=== PATIENT | female | born 1970 | race Caucasian/White ===

== ENCOUNTER → 2016-06-20 | Outpatient (CLI) | payer OTHER ==
[~2016-06-20] MED LIST: GADOBUTROL 10 ML VIAL IVP ONE
== END ==
LOC: FIMAGING 11:32
PROVIDERS: ATTEND Neurological Surgery
DX: I67.1 Cerebral aneurysm, nonruptured (principal); I65.21 Occlusion and stenosis of right carotid artery; G93.89 Other specified disorders of brain
CPT/HCPCS: A9585

== ENCOUNTER → 2016-09-23 | Outpatient (CLI) | payer OTHER | LOC: FIMAGING 12:15 | PROVIDERS: ATTEND Neurological Surgery | DX: I67.1 Cerebral aneurysm, nonruptured (principal) | CPT/HCPCS: A9585 ==

== ENCOUNTER → 2016-12-31 | Outpatient (CLI) | payer OTHER | LOC: FIMAGING 14:42 | PROVIDERS: ATTEND Physician Assistant | DX: I72.0 Aneurysm of carotid artery (principal) | CPT/HCPCS: A9585 ==

== ENCOUNTER 2017-06-13 16:50 | Observation (INO) | payer BC ==
--- NOTE | 2017-06-13 17:12 | EDPHY ---
H & P Stated Complaint: henson since 929/hx spontaneous subarachnoid in past - Personal History LMP (Females 10-55): Post Menopausal Current Tetanus/Diphtheria Vaccine: Yes - Medical/Surgical History Hx Asthma: No Hx Chronic Respiratory Disease: No Hx Diabetes: No Hx Cardiac Disease: No Hx Renal Disease: No Hx Cirrhosis: No Hx Alcoholism: No Hx HIV/AIDS: No Hx Splenectomy or Spleen Trauma: No Other PMH: PMHx: hypothyroidism, fertility issues. 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 this morning while she was working at home. She describes the pain as waxing and waning, intermittently feel on as as sharp stabbing pain with associated nausea. No vomiting. Pain and nausea continue now. No gait instability. No slurred speech. No visual disturbance. No chest pain. No recent head injury. PRIMARY CARE PROVIDER: REVIEW OF SYSTEMS: A ten point review of systems was performed and is negative with the exception of the items mentioned in the HPI PAST MEDICAL & SURGICAL HISTORY: Subarachnoid hemorrhage December 2015 with placement of ventriculostomy catheter and "embolization. SOCIAL HISTORY:Nonsmoker PHYSICAL EXAM (Prior to examination, patient consented to physical exam, hands were washed and my usual and customary physical exam procedures followed) 1) GENERAL: Well-developed, well-nourished, alert and oriented. Appears uncomfortable. Answering questions appropriately 2) HEAD: Normocephalic, atraumatic 3) HEENT: Pupils equal, round, reactive to light bilaterally. Sclera anicteric. Nasopharynx, oropharynx, clear, no lesions. Ears bilaterally with normal tympanic membranes. 4) NECK: Full range of motion, no meningeal signs. 5) LUNGS: Clear auscultation bilaterally, no wheezes, no rhonchi, no retractions. 6) HEART: Regular rate and rhythm, no murmur, no heave, no gallop. 7) ABDOMEN: No guarding, no rebound, no focal tenderness, negative McBurney's, negative Blair's, negative Rovsing's, negative peritoneal sign, 8) MUSCULOSKELETAL: Moving all extremities, no focal areas of tenderness, no obvious trauma. No peripheral edema or discoloration. 9) BACK: No CVA tenderness, no midline vertebral tenderness, no fluctuance, no step-off, no obvious trauma, no visual or palpable abnormality. 10) SKIN: No rash, no petechiae. 11) Psychiatric: Patient is oriented X 3, there is no agitation. 12) NEURO: Awake, alert, and oriented to person, place and time. Answers questions appropriately. There were no obvious focal neurologic abnormalities. No cerebellar dysfunction. Cranial nerves 2 through to 12 intact. Normal steady gait. Upper and lower extremities bilaterally with strength 5 / 5, reflexes 2+. DIFFERENTIAL DIAGNOSIS: In no particular order, including but not limited to subarachnoid hemorrhage, migraine headache, tension headache and infectious causes such as meningitis, pharyngitis and sinusitis.. (Erica Goldman Ruthy) Constitutional: Initial Vital Signs Temperature (C) 36.4 C 06/13/17 16:54 Heart Rate 62 06/13/17 16:54 Respiratory Rate 18 06/13/17 16:54 Blood Pressure 176/118 H 06/13/17 16:54 O2 Sat (%) 97 06/13/17 16:54 O2 Delivery Mode Room Air Allergies/Adverse Reactions: bacitracin [From Neosporin ([id number])] Allergy (Verified 06/13/17 16:52) bacitracin zinc [From Neosporin ([id number])] Allergy (Verified 06/13/17 16: 52) neomycin sulfate [From Neosporin ([id number])] Allergy (Verified 06/13/17 16: 52) polymyxin B [From Neosporin (naq-[id number])] Allergy (Verified 06/13/17 16:52) Home Medications: Medication Instructions Recorded Aspirin EC [Aspirin EC 81 mg (*)] 81 mg PO DAILY 06/13/17 Cholecalciferol Vit D3 [Vitamin D3 5,000 units PO DAILY 06/13/17 (*)] Gabapentin [Neurontin 100 MG (*)] 200 mg PO HS 06/13/17 Levothyroxine [Synthroid 75 mcg 75 mcg PO DAILY06 06/13/17 (*)] Lisinopril [Zestril 10 mg (*)] 2.5 mg PO BID 06/13/17 oxyCODONE IR [Oxycodone Ir (*)] 5 mg PO Q6H PRN 06/13/17 Medical Decision Making - Diagnostics Imaging Results: Imaging Impressions Head CT 06/13/17 17:07 Impression: Nothing acute identified. Specifically no evidence for recurrent subarachnoid hemorrhage. Results called to PA. Millieat 5:53 pm General information for patients regarding this examination can be found at [email or web address]. If you have questions or comments about this report, please contact me at (hospital) or [phone] (cell). ED Course/Re-evaluation: 5:11 p.m.: I reviewed the patient's old medical records. She has a medical history significant for subarachnoid hemorrhage. Discussed case with secondary supervising physician Dr. Pascual Julian in the ER. Will proceed directly to CT imaging. 5:53 p.m.: CT head negative per Radiology interpretation. 6:09 p.m.: Consultation with Dr. Regan Neurosurgery, inquired specifically about more advanced imaging such as CTA, CTV. He recommended that if the LP is negative, to hold on further diagnostic studies. We discussed patient's sodium [address] Regan feels may be the etiology of her headache. 6:37 p.m.: Consultation with hospitalist Dr. Roc Castillo who will admit patient. (Erica Goldman) Other Provider: PHYSICIAN DOCUMENTATION: The patient was evaluated and managed by the Physician Flat Sheet Maker and myself. I have reviewed the chart and agree with the findings and plan of care as documented. In addition, I examined the patient myself at 1800. History confirmed as severe headache starting at 9:00 a.m., history of coiled aneurysmal subarachnoid. Physical findings as follows: Alert, normal speech, normal level of alertness. Procedure: Lumbar puncture. Indication: headache and history of subarachnoid Risks benefits and alternatives to the procedure were discussed including but not limited to infection, headache, bleeding, and neurologic damage. Consent was obtained. The patient was prepped and draped in the usual sterile fashion. A time out was completed. The entry site was anesthetized with 1% lidocaine and a lumbar puncture was performed with a 23-gauge spinal needle. Approximately 4 mL of clear fluid was obtained. Opening pressure was not obtained. There were no complications. The procedure was performed by myself. 1959: 0 WBC and 0 RBC in tube 1, subarachnoid hemorrhage would be very unlikely given this result. I am the secondary supervising physician. (Pascual Julian) - Data Points Laboratory Results: Laboratory Results 06/13/17 17:10 06/13/17 17:10 06/13/17 06/13/17 06/13/17 18:20 18:20 17:10 WBC RBC Hgb Hct MCV MCH MCHC RDW Plt Count MPV Neut % (Auto) Lymph % (Auto) [place] % (Auto) Eos % (Auto) Baso % (Auto) Nucleat RBC Rel Count Absolute Neuts (auto) Absolute Lymphs (auto) Absolute Monos (auto) Absolute Eos (auto) Absolute Basos (auto) Absolute Nucleated RBC Immature Gran % Immature Gran # PT INR APTT Sodium Potassium Chloride Carbon Dioxide Anion Gap BUN Creatinine Estimated GFR Glucose Calcium Beta HCG, Qual NEGATIVE CSF Tube Number 4 1 CSF Appearance CLEAR CLEAR (CLEAR) (CLEAR) CSF Color COLORLESS COLORLESS (COLORLESS) (COLORLESS) CSF Supernatant COLORLESS COLORLESS (COLORLESS) (COLORLESS) CSF WBC 1 /mm3 /mm3 0 /mm3 /mm3 (0-5) (0-5) CSF RBC 0 /mm3 /mm3 0 /mm3 /mm3 (0-0) (0-0) CSF Glucose 44 mg/dL L mg/dL (50-75) CSF Total Protein 49 mg/dL mg/dL (12-60) 06/13/17 06/13/17 06/13/17 17:10 17:10 17:10 WBC 3.67 10^3/uL L 10^3/uL (3.80-9.50) RBC 4.56 10^6/uL 10^6/uL (4.18-5.33) Hgb 14.4 g/dL g/dL (12.6-16.3) Hct 39.3 % % (38.0-47.0) MCV 86.2 fL fL (81.5-99.8) MCH 31.6 pg pg (27.9-34.1) MCHC 36.6 g/dL g/dL (32.4-36.7) RDW 12.1 % % (11.5-15.2) Plt Count 264 10^3/uL 10^3/uL (150-400) MPV 9.0 fL fL (8.7-11.7) Neut % (Auto) 39.3 % % (39.3-74.2) Lymph % (Auto) 51.2 % H % (15.0-45.0) [place] % (Auto) 5.4 % % (4.5-13.0) Eos % (Auto) 3.0 % % (0.6-7.6) Baso % (Auto) 0.8 % % (0.3-1.7) Nucleat RBC Rel Count 0.0 % % (0.0-0.2) Absolute Neuts (auto) 1.44 10^3/uL L 10^3/uL (1.70-6.50) Absolute Lymphs (auto) 1.88 10^3/uL 10^3/uL (1.00-3.00) Absolute Monos (auto) 0.20 10^3/uL L 10^3/uL (0.30-0.80) Absolute Eos (auto) 0.11 10^3/uL 10^3/uL (0.03-0.40) Absolute Basos (auto) 0.03 10^3/uL 10^3/uL (0.02-0.10) Absolute Nucleated RBC 0.00 10^3/uL 10^3/uL (0-0.01) Immature Gran % 0.3 % % (0.0-1.1) Immature Gran # 0.01 10^3/uL 10^3/uL (0.00-0.10) PT 13.7 SEC SEC (12.0-15.0) INR 1.03 (0.83-1.16) APTT 32.6 SEC SEC (23.0-38.0) Sodium 124 mEq/L L mEq/L (135-145) Potassium 4.0 mEq/L mEq/L (3.5-5.2) Chloride 90 mEq/L L mEq/L (97-110) Carbon Dioxide 22 mEq/l mEq/l (22-31) Anion Gap 12 mEq/L mEq/L (8-16) BUN 6 mg/dL L mg/dL (7-23) Creatinine 0.6 mg/dL mg/dL (0.6-1.0) Estimated GFR > 60 Glucose 77 mg/dL mg/dL (70-100) Calcium 8.9 mg/dL mg/dL (8.5-10.4) Beta HCG, Qual CSF Tube Number CSF Appearance CSF Color CSF Supernatant CSF WBC CSF RBC CSF Glucose CSF Total Protein Microbiology Results: MICROBIOLOGY 06/13/17 18:20 Cerebral Spinal Fluid Gram Stain - Final Medications Given: Gabapentin (Neurontin) 200 mg PO HS LARY Stop: 12/10/17 20:59 Last Admin: 06/13/17 20:17 Dose: 200 mg Lisinopril (Zestril) 2.5 mg PO BID LARY Stop: 12/10/17 20:59 Last Admin: 06/13/17 20:17 Dose: 2.5 mg Discontinued Medications Sodium Chloride (Ns) 1,000 mls @ 0 mls/hr IV ONCE ONE PRN Reason: Wide Open Stop: 06/13/17 17:26 Last Admin: 06/13/17 18:59 Dose: Not Given Sodium Chloride (Ns) 500 mls @ 1,500 mls/hr IV ONCE ONE Stop: 06/13/17 19:13 Last Admin: 06/13/17 18:59 Dose: 500 mls Metoclopramide HCl (Reglan Injection) 10 mg IVP EDNOW ONE Stop: 06/13/17 17:26 Last Admin: 06/13/17 17:36 Dose: 10 mg Departure - Departure Disposition: [facility] Acute Clinical Impression: Hyponatremia, History of subarachnoid hemorrhage Headache Qualifiers: Headache type: other headache syndrome Qualified Code(s): G44.89 - Other headache syndrome Condition: Good
[2017-06-13 17:25] LABS: PLATELET COUNT 264 10^3/uL (150-400)
[2017-06-13] MEDS ORDERED: NS 1,000 ML IV ONE (17:25)
[2017-06-13] MEDS ORDERED: METOCLOPRAMIDE 10 MG/2 ML VIAL IVP ONE (17:25)
[2017-06-13 17:43] LABS: INR 1.03 (0.83-1.16); PROTIME(PATIENT) 13.7 SEC (12.0-15.0)
[2017-06-13] MEDS ORDERED: PROMETHAZINE HCL 25 MG/ML INJ IVP PRN (18:54)
[2017-06-13] MEDS ORDERED: METOCLOPRAMIDE 10 MG/2 ML VIAL IVP PRN (18:54)
[2017-06-13] MEDS ORDERED: oxyCODONE IR 5 MG TAB PO PRN ×2 (18:54→18:56)
[2017-06-13] MEDS ORDERED: ACETAMINOPHEN 325 MG TAB PO PRN (18:54)
[2017-06-13] MEDS ORDERED: NS 500 ML IV ONE (18:54)
--- NOTE | 2017-06-13 19:32 | GHP ---
[f rep st] HISTORY AND PHYSICAL DATE OF ADMISSION: 06/13/2017 CHIEF COMPLAINT: Headache. HISTORY OF PRESENT ILLNESS: This is a 47-year-old female with a history of an aneurysmal subarachnoi d bleed in 2016, status post ventriculostomy placement as well as coiling and stent procedure by Dr. Mauro. Since then she has been doing well, and she follows with TBI specialist Dr. Blackburn. She h as somewhat of a chronic headache disorder, which is normally dull and throbbing. Two days ago, it w as worse than normal. She stayed home from work. She basically slept all day yesterday. Today, she drank a lot of tea but has not really eaten anything else. She says that she has been urinating nor roz. She presented to the ED today after having a much more severe stabbing pain in the left side of her head. It was not associated with any neurologic symptoms, including worsening confusion, weak ness, or numbness. In the emergency department, she underwent a lumbar puncture to exclude xanthochr omia. PAST MEDICAL/SURGICAL HISTORY: 1. Subarachnoid hemorrhage due to an aneurysmal coil in 2016. 2. Hypertension. MEDICATIONS: Please see medication reconciliation. ALLERGIES: Neosporin. FAMILY HISTORY: Grandmother had an aneurysm. SOCIAL HISTORY: She drinks alcohol socially. She is accompanied by her . REVIEW OF SYSTEMS: A 10-point review of systems is conducted and is negative except per HPI. PHYSICAL EXAMINATION: VITAL SIGNS: Blood pressure 155/110, pulse 46, respiration rate 16, saturatin g 100% on room air, temperature 36.4. IN GENERAL: The patient is a pleasant female who is resting c omfortably. No acute distress. HEENT: Shows her to be normocephalic, atraumatic. CARDIOVASCULAR: Regular rate and rhythm. No murmurs, rubs, or gallops. PULMONARY: Lungs clear to auscultation dee aterally. ABDOMEN: Soft, nontender, nondistended. SKIN: No rash. : No [place]. NEUROLOGIC: Sh ows her to be alert and oriented x3. She is somewhat slow to answer questions. Cranial nerves 2-12 are intact. Motor and sensation are intact in her upper and lower extremities. LABS: White count is 3.6. INR is 1.0. Sodium is 124. Chloride is 90. CSF is pending. DATA: 1. I discussed this with Manuel Hampton as well as Pascual Sexton. We will admit to Med/Surg for hyponatre daylin. 2. Head CT shows nothing acute. IMPRESSION AND PLAN: A 47-year-old female with headache and hyponatremia. 1. Hyponatremia: This is probably a combination of hypovolemia with mild polydipsia. I will place her on a fluid restriction. Give her 500 cc of normal saline and then recheck a sodium thereafter. Check urine electrolytes. Based on her response to a half liter, this will determine the course movi ng forward. 2. Hypertension/bradycardia: Apparently, she is always bradycardic. I confirmed this on her last a dmission. I do not think that this is Heydi reflex. We will follow for now. 3. History of a subarachnoid hemorrhage status post aneurysmal coil, presenting with a headache: CT head negative. CSF is pending for xanthochromia. It did not appear xanthochromic per Dr. Sexton when he performed the lumbar puncture. If it is negative for xanthochromia, per Dr. Mauro she is tanvi crocker ruled out. /[id number]/MODL
[2017-06-13] MEDS: LISINOPRIL 5 MG TAB PO SCH (20:17)
[2017-06-13] MEDS ORDERED: GABAPENTIN 100 MG CAP PO SCH (21:00)
[2017-06-14 00:29] VITALS: O2SAT 95
[2017-06-14] MEDS ORDERED: LEVOTHYROXINE 75 MCG TAB PO SCH (06:00)
[2017-06-14 08:37] VITALS: BP 138/89; PULSE 59; RESP 16; TEMP 98.1
[2017-06-14] MEDS: LISINOPRIL 5 MG TAB PO SCH (08:37)
--- NOTE | 2017-06-14 13:20 | GCON ---
[f rep st] CONSULTATION NEUROLOGY CONSULTATION DATE OF CONSULTATION: 06/14/2017 HISTORY OF PRESENT ILLNESS: The patient is a 47-year-old female who is well known to the [facility] associates and came in about a year ago with a ruptured supraclinoid carotid aneurysm that was subsequently coiled and stented by Dr. Anam Mauro. She remained in the hospital for some time , but has had a very good outcome since her surgery and has recovered mostly, but does still go to [facility] for some cognitive rehabilitation. We continue to follow the patient in our office e very 3 months with an MRI and MRA of the brain to follow her aneurysm. At her last visit the aneurys m did have some slight filling of contrast in the aneurysm, which is not unusual at that point and we are planning to see her in approximately 3 weeks with another MRI and MRA to follow up in regard to her aneurysm being fully cured. The patient came into the hospital yesterday. She states that she w selam up with a horrible headache and it woke her from her sleep. She was worried that this was simila r to her symptoms that originally brought her into the hospital when her aneurysm ruptured and she pr es[facility] Room. There a head CT scan was performed that did not richard w any new or acute changes. She was, however, found to be hyponatremic with a sodium level of 124. She was admitted overnight for observation. This morning, she denies any nausea, vomiting, or any he adaches this morning. She denies any vision changes or any numbness, tingling, pain in her arms or l egs or any weakness. She feels otherwise normal and has no complaints. REVIEW OF SYSTEMS: All pertinent positive review of systems are as stated in the HPI. PAST MEDICAL HISTORY: Significant for a ruptured supraclinoid carotid aneurysm, hypertension. MEDICATIONS: Please see the medication reconciliation report. ALLERGIES: The patient is allergic to Neosporin. FAMILY HISTORY: The patient does have a family history of aneurysm in her grandmother. SOCIAL HISTORY: Patient drinks alcohol socially. She is accompanied by her today. She curr ently works part-time. OBJECTIVE: VITAL SIGNS: Blood pressure 138/89, heart rate 70, respiratory rate 14, O2 saturation is 95% on room air. CONSTITUTIONAL: Patient is a well-developed, well-nourished female in no acute di stress. Her speech is fluent. She is alert and oriented to person, place, time, situation. HEENT: Head: Normocephalic, atraumatic. Eyes: Pupils are equal and react to light and accommodation. Ex traocular muscles are intact. NECK: Supple and has full range of motion. NEURO: Cranial nerves 2- 12 are grossly intact. Tongue protrusion is midline. Palate rises symmetrically. Face is symmetric al. Sensation is intact to light touch. Accessory muscles are 5/5 and equal in strength. Motor: B ilateral upper extremities and lower extremities are 5/5 and equal in strength in all muscle groups i ncluding deltoids, biceps, triceps, wrist extensors, flexors, interossei and media relations associate and quadriceps hams trings dorsiflexion, plantar flexion, and EHL. Sensation is intact over the dermatomal distribution of the body. EXTREMITIES: No cyanosis or edema noted. ABDOMEN: There is no guarding. RESPIRATORY : Has normal work of breathing. LABORATORY DATA: White blood cell count 2.67, red blood cell count 4.56, hemoglobin 14.4, hematocrit 39.3, platelets 264. INR 1.03, APTT 32.6, PT 13.7. Sodium 124, potassium 4.0, chloride 90, carbon dioxide 22, anion gap 12, BUN 6, creatinine 0.6, glucose 77, calcium 8.9. Her sodium level as of at 4:20 in the morning was 138. Her urine osmolality was 69. DIAGNOSTIC IMAGING: A head CT was performed without contrast on 06/13/2017 at approximately 5:07 p.m . and shows nothing acute identified, specifically no evidence for recurrent subarachnoid hemorrhage. ASSESSMENT AND PLAN: This is a 47-year-old female with a history of a ruptured supraclinoid carotid aneurysm that was subsequently coiled and stented by Dr. Mauro approximately a year ago. She has had active follow up with us after the surgery and has made a normal recovery. She did come into the [facility] emergency room yesterday evening with acute onset of a headache. Head CT was performed which d id not show any other evidence of any acute subarachnoid hemorrhage. Her sodium level, however, did show a low sodium level of 124 and could likely be a cause of headaches and her nausea that she had w hen she presented to the emergency room. This has been corrected and this morning she feels back to normal. Dr. Mauro plans on seeing this patient in approximately 3 weeks as scheduled for her regular followup with another MRI and MRA with contrast to follow her aneurysm. Any questions or concerns, please contact the Neurosurgical team. I did speak to the patient this morning about any warning sig ns including excessive intractable headaches, excessive vomiting, any weakness or slurred speech she is to go to the emergency room. She understood and she will be discharged later today and will follo w up as scheduled in 3 weeks. Any questions or concerns please contact [facility]. /[id number]/MODL
--- NOTE | 2017-06-14 13:29 | GDS ---
[f rep st] DISCHARGE SUMMARY DISCHARGE DIAGNOSIS: Hyponatremia. PHYSICAL EXAM: GENERAL: The patient is alert. VITAL SIGNS: Afebrile at 36.7, pulse is 59, respira tory rate 16, blood pressure is 138/89. She is saturating 95% on room air. I have seen and evaluate d patient on the day of discharge. HOSPITAL COURSE: The patient is a 47-year-old female who presented to the emergency room with compla ints of headache. After further evaluation, she was admitted to the hospital and treated for headach e with hyponatremia. Her hyponatremia has improved. She has responded well to fluid restrictions, a s well as IV normal saline. She had a history of a subarachnoid hemorrhage. She did receive a lumba r puncture during this hospital course and further evaluation by Dr. Mauro, her primary neurosurgeon. Her lumbar puncture was uneventful, and her CSF was within normal limits. Her headache has resolve d, and she will be discharged home independently with her . FOLLOWUP: With Dr. Mauro in 2 weeks for further evaluation and management. There are no pending anita dies. DISCHARGE MEDICATIONS: Please refer to EMR form. I have not provided the patient any new prescripti ons at the time of disposition. /[id number]/MODL
== END 2017-06-14 11:10 | disposition home or self-care (01) ==
LOC: INTOOBSV 18:34 → F3E 20:00
PROVIDERS: ADMIT Student in an Organized Health Care Education/Training Program; ATTEND Hospitalist
PROC: 009U4ZX Drainage of Spinal Canal, Percutaneous Endoscopic Approach, Diagnostic (ICD-10-PCS; principal; 2017-06-13)
DX: E87.1 Hypo-osmolality and hyponatremia (principal); R51 Headache; R00.1 Bradycardia, unspecified; E03.9 Hypothyroidism, unspecified; Z86.79 Personal history of other diseases of the circulatory system; Z78.0 Asymptomatic menopausal state
CPT/HCPCS: 62270; 70450; 96374; 99285; G0378; J2765

== ENCOUNTER → 2017-07-11 | Outpatient (CLI) | payer BC | LOC: FIMAGING 10:18 | PROVIDERS: ATTEND Neurological Surgery | DX: I60.01 Nontraumatic subarachnoid hemorrhage from right carotid siphon and bifurcation (principal); I65.21 Occlusion and stenosis of right carotid artery; G93.89 Other specified disorders of brain | CPT/HCPCS: A9585 ==

== ENCOUNTER → 2018-02-26 | Outpatient (CLI) | payer BC | LOC: FIMAGING 15:13 | PROVIDERS: ATTEND Family Medicine | DX: Z12.31 Encounter for screening mammogram for malignant neoplasm of breast (principal) ==

== ENCOUNTER → 2018-03-15 | Outpatient (CLI) | payer BC | LOC: FIMAGING 13:24 | PROVIDERS: ATTEND Family Medicine | DX: N63.10 Unspecified lump in the right breast, unspecified quadrant (principal) ==

== ENCOUNTER → 2018-03-25 | Outpatient (CLI) | payer BC ==
[~2018-03-25] MED LIST changes: +BUPIVACAINE 0.5% 30 ML SDV ONE; -GADOBUTROL 10 ML VIAL IVP ONE; +LIDOCAINE 1% 300 MG/30 ML SDV ONE
== END ==
LOC: FIMAGING 07:14
PROVIDERS: ATTEND Family Medicine
PROC: 0HBT3ZX Excision of Right Breast, Percutaneous Approach, Diagnostic (ICD-10-PCS; principal; 2018-03-25)
DX: D24.1 Benign neoplasm of right breast (principal)

== ENCOUNTER → 2018-06-14 | Outpatient (CLI) | payer BC ==
[~2018-06-14] MED LIST changes: -BUPIVACAINE 0.5% 30 ML SDV ONE; +GADOBUTROL 10 ML VIAL IVP ONE; -LIDOCAINE 1% 300 MG/30 ML SDV ONE
== END ==
LOC: FIMAGING 12:41
PROVIDERS: ATTEND Physician Assistant
DX: I65.21 Occlusion and stenosis of right carotid artery (principal); G93.89 Other specified disorders of brain; Z87.820 Personal history of traumatic brain injury
CPT/HCPCS: A9585

== ENCOUNTER 2018-09-15 20:44 | Emergency (ER) | payer BC | END 2018-09-16 00:30 | disposition home or self-care (01) ==